=== PATIENT | male | born 1990 | race Caucasian/White ===

== ENCOUNTER 2018-04-03 12:49 | Emergency (ER) | payer OTHER ==
[2018-04-03 13:47] VITALS: BP 145/75
--- NOTE | 2018-04-03 15:09 | ED ---
Skin Complaint - HPI Summary HPI Summary: 27-year-old male presents with sister reporting erythema and bruising to anterior aspect of his left lower leg after falling while riding 4 days ago. Reports erythema has been slowly increasing over the past 2 days and the area has begun to blister and weep. He has been able to bear weight immediately after the injury and here in the clinic without pain. Denies fever, chills, calf swelling or tenderness. - History of Current Complaint Chief Complaint: UCLowerExtremity Time Seen by Provider: 04/03/18 14:47 Stated Complaint: SP-FALL,LEG CONCERN Hx Obtained From: Patient, Family/Trend Investigator Pain Intensity: 0 - Allergy/Home Medications Allergies/Adverse Reactions: Allergies Allergy/AdvReac Type Severity Reaction Status Date / Time No Known Allergies Allergy Verified 04/03/18 13:43 Home Medications: Home Medications Fluticasone NASAL SPRAY 50MCG* [Flonase NASAL SPRAY 50MCG*] 2 spray BOTH NARES DAILY PRN 04/03/18 [History Confirmed 04/03/18] PMH/Surg Hx/FS Hx/Imm Hx Previously Healthy: Yes - Denies significant PMH EENT History: Reports: Hx Deafness - Surgical History Surgery Procedure, Year, and Place: FATTY TISSUE REMOVED FROM GROIN AREA Infectious Disease History: No Infectious Disease History: Denies: Traveled Outside the [place] in Last 30 Days - Family History Known Family History: Positive: Non-Contributory - Social History Occupation: Disabled Lives: With Family Alcohol Use: Occasionally Substance Use Type: Reports: None Smoking Status (MU): Heavy Every Day Tobacco Smoker Type: Smokeless Tobacco Amount Used/How Often: 1/2 can daily Length of Time of Smoking/Using Tobacco: Since Age 17 Have You Smoked in the Last Year: Yes Review of Systems Negative: Fever, Chills Musculoskeletal: Negative Skin: Other - See HPI Negative: Paresthesia, Numbness All Other Systems Reviewed And Are Negative: Yes Physical Exam - Summary Physical Exam Summary: GENERAL APPEARANCE: Well developed, well nourished, alert and cooperative, and appears to be in no acute distress. HEAD: Atraumatic. normocephalic. NECK: Neck supple, non-tender. CARDIAC: Normal S1 and S2. No S3, S4 or murmurs. Rhythm is regular. There is no peripheral edema, cyanosis or pallor. Extremities are warm and well perfused. Capillary refill is less than 2 seconds. Peripheral pulses intact. LUNGS: Clear to auscultation and percussion without rales, rhonchi, wheezing or diminished breath sounds. ABDOMEN: Positive bowel sounds. Soft, nondistended, nontender. No guarding or rebound. No masses or hepatosplenomegally. MUSKULOSKELETAL: ROM intact to all extremities. No joint erythema or tenderness. Normal muscular development. Normal gait. BACK: Examination of the spine reveals normal gait and posture, no spinal deformity or tenderness, decreased range of motion or muscular spasm. NEUROLOGICAL: Strength and sensation symmetric and intact throughout. SKIN: 4 cm x 2.5 cm area of erythema with vesicles to the anterior left lower leg as well as surrounding eccymosis. No induration or fluctuance present. Triage Information Reviewed: Yes Vital Signs On Initial Exam: Initial Vitals Temp Pulse Resp BP Pulse Ox 98.1 F 78 18 145/75 100 04/03/18 13:40 04/03/18 13:40 04/03/18 13:40 04/03/18 13:40 04/03/18 13:40 Vital Signs Reviewed: Yes Diagnostics - Vital Signs Vital Signs Temp Pulse Resp BP Pulse Ox 04/03/18 13:40 98.1 F 78 18 145/75 100 - Laboratory Lab Statement: Any lab studies that have been ordered have been reviewed, and results considered in the medical decision making process. Course/Dx - Course Course Of Treatment: 27-year-old male presents with sister reporting erythema and bruising to anterior aspect of his left lower leg after falling while riding 4 days ago. Reports erythema has been slowly increasing over the past 2 days and the area has begun to blister and weep. He has been able to bear weight immediately after the injury and here in the clinic without pain. Denies fever, chills, calf swelling or tenderness. Afebrile. Vital signs stable. Exam reveals a 4 cm x 2.5 cm area of erythema and vesicles to the anterior aspect of his left lower leg with some surrounding ecchymosis. Will treat for cellulitis with Bactrim DS 1 tab twice a day 5 days. He is to follow -up with his primary care provider if there is no improvement in symptoms within the next 3 days. Warning symptoms were reviewed with patient and sister. Verbalized understanding and agreed with plan of care. - Differential Diagnoses - Skin Complaint Differential Diagnoses: Abscess, Cellulitis, MRSA - Diagnoses Provider Diagnoses: Cellulitis of left lower leg Discharge - Sign-Out/Discharge Documenting (check all that apply): Patient Departure All imaging exams completed and their final reports reviewed: No Studies - Discharge Plan Condition: Stable Disposition: HOME Prescriptions: Sulfamethox/Trimethoprim DS* [Bactrim DS 800/160 TAB*] 1 tab PO BID #10 tab Patient Education Materials: Cellulitis (ED) Referrals: Page CHANELP,Tara [Primary Care Provider] - 3 Days (If no improvement in symptoms.) Additional Instructions: You appear to have a condition called celluitis (skin infection). We will start you on an antibiotic to treat for the infection. Take Bactrim DS 1 tab twice a day for 5 days. Keep the wound clean. Use a mild soap and water. Cover with a gauze dressing to prevent it from becoming contaminated. Take acetaminophen (Tylenol) or ibuprofen (Advil, Motrin) as needed for pain. Follow up with your primary care provider in 3 days if no improvement in symptoms. Seek immediate medical attention in the emergency room if you develop fever greater than 100.5 F, have increased redness, swelling, pain, or any worsening of symptoms. - Billing Disposition and Condition Condition: STABLE Disposition: Home - Attestation Statements Provider Attestation: I was available for consult. This patient was seen by the LIZANDRO. The patient was not presented to, seen by, or examined by me. -Ryan
== END 2018-04-03 15:15 | disposition home or self-care (01) ==
LOC: UCCORT 12:49
DX: L03.116 Cellulitis of left lower limb (principal); W19.XXXA Unspecified fall, initial encounter; Y92.9 Unspecified place or not applicable; H91.90 Unspecified hearing loss, unspecified ear; F17.210 Nicotine dependence, cigarettes, uncomplicated
CPT/HCPCS: 99212; G0463